=== PATIENT | female | born 1975 | race Caucasian/White ===

== ENCOUNTER 2017-09-12 18:17 | Emergency (ER) | payer BC ==
[~2017-09-12] VITALS: Ht 154.9 cm; Wt 72.6 kg
--- NOTE | 2017-09-12 18:39 | PHYS DOC ---
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 Patient had immediate back pain that was to the lower back on the right side afterwards. Patient denied any paresthesias or weakness to the lower extremity bilaterally. Patient denied any difficulty starting or controlling her urine. Patient denied any difficulty with bowel movements. Patient denied any saddle anesthesia. Patient has no previous back history. Patient states she took one hydrocodone without any pain relief. Patient has no other complaints and no other injuries. Review of Systems Review of Systems GEN: Denies fevers, chills, sweats HEENT: Denies blurred vision, sore throat CV: Denies chest pain RESP: Denies shortness of air, cough GI: Denies n/v/d NEURO: Denies confusion, dizziness MSK: Lower back pain All other systems were reviewed and found to be within normal limits, except as documented in this note. Current Medications Current Medications Current Medications Medications (Trade) Dose Ordered Sig/Kathi Start Time Stop Time Status Last Admin Dose Admin Dexamethasone Sodium Phosphate (Decadron) 10 mg 1X ONCE 09/12/17 20:15 09/12/17 20:16 DC 09/12/17 20:18 10 MG Diazepam (Valium) 5 mg 1X ONCE 09/12/17 19:15 09/12/17 19:16 DC 09/12/17 19:06 5 MG Fentanyl Citrate (Fentanyl 2ml Vial) 50 mcg 1X ONCE 09/12/17 20:15 09/12/17 20:16 DC 09/12/17 20:18 50 MCG Ketorolac Tromethamine (Toradol) 30 mg 1X ONCE 09/12/17 19:15 09/12/17 19:16 DC 09/12/17 19:10 30 MG Sodium Chloride 1,000 ml @ 1,000 mls/hr 1X ONCE 09/12/17 20:00 09/12/17 20:59 09/12/17 20:19 1,000 MLS/HR Allergies Allergies Allergies Coded Allergies Type Severity Reaction Last Updated Verified No Known Drug Allergies 09/12/17 No Physical Exam Physical Exam GEN.: Moderate distress. Alert and oriented. HEENT: Head is normocephalic, atraumatic NECK: Supple. LUNGS: CTAB. HEART: RRR, S1, S2 present. Peripheral pulses intact ABDOMEN: Soft, nontender. Positive bowel sounds. EXTREMITIES: Without any cyanosis, no saddle anesthesia, muscle strain to lower extremity bilaterally proximal and distal 5/5 NEUROLOGIC: Normal speech, normal tone PSYCHIATRIC: Normal affect, normal mood. SKIN: No ulcerations BACK: No tenderness palpation over the T and L-spine, mild tenderness to palpation over the right paraspinous muscles and right SI joint Current Patient Data Vital Signs Vital Signs Date Time Temp Pulse Resp B/P (MAP) Pulse Ox O2 Delivery O2 Flow Rate FiO2 09/12/17 18:20 98.3 97 18 132/66 (88) 100 Room Air 98.3 Lab Values Laboratory Tests Test 09/12/17 18:38 09/12/17 18:43 Urine Collection Type Unknown Urine Color Yellow Urine Clarity Clear Urine pH 5.5 Urine Specific [place] 1.020 Urine Protein Negative mg/dL (NEG-TRACE) Urine Glucose (UA) Negative mg/dL (NEG) Urine Ketones (Stick) Negative mg/dL (NEG) Urine Blood Large (NEG) Urine Nitrite Positive (NEG) Urine Bilirubin Negative (NEG) Urine Urobilinogen Dipstick 0.2 mg/dL (0.2 mg/dL) Urine Leukocyte Esterase Small (NEG) Urine RBC 11-20 /HPF (0-2) Urine WBC 5-10 /HPF (0-4) Urine Squamous Epithelial Cells Mod /LPF Urine Bacteria Many /HPF (0-FEW) Urine Mucus Mod /LPF POC Urine HCG, Qualitative Hcg negative (Negative) EKG EKG [] Radiology/Procedures Radiology/Procedures CT L-spine: IMPRESSION: No focal abnormality evident in the lumbar spine.[] Course & Med Decision Making Course & Med Decision Making Pertinent Labs and Imaging studies reviewed. (See chart for details) ED course: Patient was seen and examined emergency room a UA with a CT L-spine was ordered 1955: On reexamination patient is still having significant pain will redosed pain medication and updated patient on CT findings 2039: Patient was reevaluated in which she was feeling better however still having some lower back pain. Discussed with patient disposition options and recommended observation hospital for the night for pain management however the patient declined and stated she felt well enough to go home and will follow-up with her PCP in the morning. MDM: After reviewing the chart, CC/HPI/PMH, physical exam, [lab results], [ radiological results], I do not believe the patient has a severe traumatic spinal injury warranting further workup and/or admission at this time. I do not believe the patient has cauda equina or cord compression syndrome. On reexamination patient's feeling better and like to go home. Patient stable for discharge. Additional verbal discharge instructions were provided to the patient and that if symptoms get worse or any new symptoms arise that are worrisome to the patient she is to return to the emergency room immediately [] Dragon Disclaimer Dragon Disclaimer This electronic medical record was generated, in whole or in part, using a voice recognition dictation system. Departure Departure Impression: Primary Impression: Lower back pain Disposition: HOME, SELF-CARE Condition: IMPROVED Patient Instructions: Back Pain, Adult Additional Instructions: Please follow-up with your family physician in the morning and if symptoms get worse please return to the emergency room immediately. Scripts Diazepam (VALIUM) 2 Mg Tablet 2 MG PO TID for 5 Days, #15 TAB Prov: KORI GALLEGOS DO 09/12/17 Prednisone (PREDNISONE) 50 Mg Tablet 1 TAB PO DAILY, #5 TAB Prov: KORI GALLEGOS DO 09/12/17 Ibuprofen (IBUPROFEN) 800 Mg Tablet 800 MG PO PRN Q8HRS Y for INFLAMMATION for 10 Days, #30 TAB Prov: KORI GALLEGOS DO 09/12/17 KORI GALLEGOS DO Sep 12, 2017 18:39
[2017-09-12 18:49] LABS: BILIRUBIN,URINE NEGATIVE (NEG); GLUCOSE,URINE NEGATIVE (NEG); NITRITE,URINE POSITIVE (NEG); PH,URINE 5.5; PROTEIN,URINE NEGATIVE (NEG-TRACE); UROBILINOGEN,URINE 0.2 mg/dL (0.2 mg/dL)
[2017-09-12 18:53] LABS: BACTERIA,URINE MANY /HPF (0-FEW); SQUAMOUS EPITHELIAL CELL,UR MOD /LPF
[2017-09-12] MEDS ORDERED: KETOROLAC 30 MG/ML INJ. IM ONE (19:00)
[2017-09-12] MEDS ORDERED: KETOROLAC 30 MG/ML INJ. IV ONE ×2 (19:00→19:15)
--- NOTE | 2017-09-12 19:37 | RAD ---
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 Severe low back pain. Helical images were obtained through the lumbar spine with no contrast administered. Reconstruction was performed in sagittal and coronal planes. Exposure: One or more of the following individualized dose reduction techniques were utilized for this examination: 1. Automated exposure control 2. Adjustment of the mA and/or kV according to patient size 3. Use of iterative reconstruction technique. The vertebral bodies of the lumbar spine are normally aligned anteriorly and posteriorly. No acute fracture or subluxation is evident. The bone density is normal. Posterior elements are intact. The intervertebral discs are maintained. There is no evidence of a significant disc bulge, herniation or evidence of spinal stenosis. No abnormality seen at the sacrum or at the sacroiliac joints. IMPRESSION: No focal abnormality evident in the lumbar spine. Electronically signed by: Ciara Wilson MD (09/12/2017 7:34 PM) [facility]
[2017-09-12] MEDS ORDERED: IV NORMAL SALINE 1000ML BAG 1,000 ML IV ONE (20:00)
[2017-09-12] MEDS ORDERED: fentaNYL PF VIAL 100 MCG/2 ML VIAL IV ONE (20:15)
[2017-09-12] MEDS ORDERED: DEXAMETHASONE SOD PHOS 4 MG/ML VIAL IV ONE (20:15)
[2017-09-12] MEDS ORDERED: DIAZ2TAB PO (20:45)
[2017-09-12] MEDS ORDERED: PRED50TA PO (20:45)
[2017-09-12] MEDS ORDERED: IBUP-1060 PO (20:45)
[2017-09-12 21:19] VITALS: BP 129/65
== END 2017-09-12 21:40 | disposition home or self-care (01) ==
LOC: ER 18:17
DX: M54.5 Low back pain (principal)
CPT/HCPCS: 72131; 81001; 81025; 87086; 87186; 96361; 96374; 96375; 99285; J1100; J1885; J3010; J3360; J7030